=== PATIENT | female | born 1980 | race Caucasian/White ===

== ENCOUNTER 2017-06-05 17:21 | Emergency (ER) | payer MEDICAID ==
[~2017-06-05] VITALS: Ht 165.1 cm; Wt 85.3 kg
--- NOTE | 2017-06-05 17:30 | NUR ---
34 WEEKS : STATES "I HAVE NOT FELT MY BABY MOVE IN 1 WHOLE DAY"
--- NOTE | 2017-06-05 17:40 | NUR ---
DR HUFFMAN AT BEDSIDE FOR EVAL
--- NOTE | 2017-06-05 18:40 | NUR ---
STITCH BONDING MACHINE TENDER AT BEDSIDE
--- NOTE | 2017-06-05 18:45 | NUR ---
WAITING FOR ULTRASOUND
--- NOTE | 2017-06-05 19:06 | NUR ---
CALLED DR REBOLLAR'S OFFICE SPOKE WITH VELMA, DR REBOLLAR WAS PAGED.
--- NOTE | 2017-06-05 19:22 | NUR ---
CALLED DR REBOLLAR'S OFFICE SPOKE WITH VELMA, DR REBOLLAR WAS REPAGED.
--- NOTE | 2017-06-05 19:23 | NUR ---
GAVE REPORT TO JHONATAN FOR CATHLEEN
--- NOTE | 2017-06-05 19:32 | NUR ---
AWITING FOR BED
--- NOTE | 2017-06-05 19:44 | NUR ---
CALLED DR REBOLLAR'S OFFICE SPOKE WITH VELMA, DR REBOLLAR WAS REPAGED.
--- NOTE | 2017-06-05 19:57 | NUR ---
CALLED [facility], I SPOKE WITH COLETTE VARELA AND NOTIFIED HER DR ROGERS REQUESTS FOR PATIENT TO BE TRANSFERRED TO [facility]. SHE STATES PATIENT IS TO GO STRAIGHT TO L&D.
--- NOTE | 2017-06-05 20:00 | NUR ---
CALLED [facility] FOR TRANSPORTATION GOING TO [facility]D, ETA 90 MIN
[2017-06-05 20:53] VITALS: BP 130/90
--- NOTE | 2017-06-05 20:54 | NUR ---
PATIENT TRANSPORTED TO [facility] FOR HIGHER LEVEL OF CARE. PATIENT'S VSS
== END 2017-06-05 20:57 | disposition home or self-care (01) ==
LOC: ER 17:25
DX: O36.4XX0 Maternal care for intrauterine death, not applicable or unspecified (principal); Z3A.35 35 weeks gestation of pregnancy
CPT/HCPCS: 76805-TC; A4606; Z7610

== ENCOUNTER 2017-12-17 15:20 | Emergency (ER) | payer OTHER ==
[~2017-12-17] VITALS: Ht 165.1 cm; Wt 83.9 kg
[2017-12-17 15:20] VITALS: BP 155/82
[2017-12-17 16:35] LABS: BASOPHILS % (AUTO) 0.6 % (0.0-2.0); EOSINOPHILS % (AUTO) 0.7 % (0.0-6.0); HEMATOCRIT 37 % (33-45); HEMOGLOBIN 12.6 g/dL (11.5-14.8); LYMPHOCYTES % (AUTO) 24.3 % (20.0-44.0); MEAN CORPUSCULAR HGB CONC 34 g/dl (31.0-36.0); MEAN CORPUSCULAR VOLUME 86 fL (82-100); MONOCYTES # (AUTO) 0.6 /CMM (0.1-1.30); MONOCYTES % (AUTO) 6.9 % (2.0-12.0); NEUTROPHILS # (AUTO) 5.7 /CMM (1.8-8.9); NEUTROPHILS % (AUTO) 67.5 % (43.0-81.0); PLATELET COUNT (AUTO) 266 /CMM (150-450); RDW COEFFICIENT OF VARIATION 12.5 (11.5-15.0); RED BLOOD CELL COUNT(AUTO) 4.34 MIL/uL (4.0-5.2); WHITE BLOOD COUNT (AUTO) 8.4 K/uL (4.3-11.0)
[2017-12-17 16:48] LABS: CALCIUM, SERUM 8.9 mg/dL (8.5-10.1); CREATININE 0.7 mg/dL (0.6-1.3)
[2017-12-17 16:51] LABS: ALBUMIN 3.8 g/dL (3.4-5.0); BILIRUBIN,TOTAL 0.2 mg/dL (0.2-1.0); TOTAL PROTEIN, SERUM 7.8 g/dL (6.4-8.2)
[2017-12-17 17:01] LABS: THYROID STIMULATING HORMONE 0.054 uIU/mL (0.358-3.74)
== END 2017-12-17 17:56 | disposition home or self-care (01) ==
LOC: ER 15:21
DX: E05.90 Thyrotoxicosis, unspecified without thyrotoxic crisis or storm (principal)
CPT/HCPCS: 36415; 76536-TC; 80053-TC; 84443-TC; 85025-TC; A4606; Z7610

== ENCOUNTER 2019-03-15 14:43 | Emergency (ER) | payer MEDICAID, OTHER ==
[~2019-03-15] VITALS: Ht 165.1 cm; Wt 84.4 kg
--- NOTE | 2019-03-15 15:10 | NUR ---
L SIDED /CHEST/UPPER BACK PAIN, PRESSURE LIKE X 2 DAYS. ALSO C/O SOB. PT AAOX4, VSS. DENIES DIZZINESS, N/V, ARM/JAW PAIN AT THIS TIME. PLACED ON CONTACT AGENT, MAURILIO MAY AT FOR EVAL. WILL CONT TO MONITOR.
[2019-03-15] MEDS ORDERED: ASPIRIN 81 MG TAB.CHEW PO ONE (15:30)
[2019-03-15] MEDS ORDERED: ASPIRIN 81 MG TAB.CHEW ONE (15:36)
[2019-03-15 15:41] LABS: BASOPHILS # (AUTO) 0.1 /CMM (0.0-0.2); BASOPHILS % (AUTO) 0.9 % (0.0-2.0); EOSINOPHILS % (AUTO) 1.5 % (0.0-6.0); HEMATOCRIT 35 % (33-45); HEMOGLOBIN 11.5 g/dL (11.5-14.8); LYMPHOCYTES # (AUTO) 1.8 /CMM (0.8-4.8); LYMPHOCYTES % (AUTO) 21.5 % (20.0-44.0); MEAN CORPUSCULAR HGB CONC 33 g/dl (31.0-36.0); MEAN CORPUSCULAR VOLUME 87 fL (82-100); MONOCYTES # (AUTO) 0.5 /CMM (0.1-1.30); NEUTROPHILS # (AUTO) 5.7 /CMM (1.8-8.9); NEUTROPHILS % (AUTO) 70.1 % (43.0-81.0); PLATELET COUNT (AUTO) 251 /CMM (150-450); RED BLOOD CELL COUNT(AUTO) 3.98 MIL/uL (4.0-5.2); WHITE BLOOD COUNT (AUTO) 8.2 K/uL (4.3-11.0)
[2019-03-15 15:48] LABS: CALCIUM, SERUM 8.6 mg/dL (8.5-10.1); CARBON DIOXIDE 29 mmol/L (21-32); CHLORIDE 103 mmol/L (98-107); CREATININE 0.8 mg/dL (0.6-1.3); GLUCOSE 96 mg/dL (74-106); POTASSIUM 3.9 mmol/L (3.5-5.1); SODIUM SERUM 141 mmol/L (136-145); UREA NITROGEN, BLOOD 11 mg/dL (7-18)
--- NOTE | 2019-03-15 15:49 | NUR ---
MEDICATED ORDERED PER PA'S ORDER, PT YUE WELL.
[2019-03-15] MEDS ORDERED: IOHEXOL-300 100 ML VIAL IV ONE (15:58)
[2019-03-15 15:59] LABS: ALANINE AMINOTRANSFERASE 51 U/L (12-78); ALBUMIN 2.9 g/dL (3.4-5.0); ALKALINE PHOSPHATASE 102 U/L (46-116); ASPARTATE AMINOTRANSFERASE 36 U/L (15-37); BILIRUBIN,TOTAL 0.2 mg/dL (0.2-1.0)
[2019-03-15] MEDS ORDERED: IV NS 0.9% 1,000 ML BAG IV ONE (16:00)
--- NOTE | 2019-03-15 18:00 | NUR ---
Patient discharged to home in stable condition. Written and verbal after care instructions given. Patient verbalizes understanding of instruction. IV removed. Catheter intact and site benign. Pressure and 4x4 applied to site. No bleeding noted.
[2019-03-15 18:02] VITALS: BP 118/80
== END 2019-03-15 18:03 | disposition home or self-care (01) ==
LOC: ER 14:50
DX: R07.89 Other chest pain (principal); R59.1 Generalized enlarged lymph nodes; R94.6 Abnormal results of thyroid function studies; Z85.850 Personal history of malignant neoplasm of thyroid; Z98.890 Other specified postprocedural states
CPT/HCPCS: 36415; 71045; 71275; 80048; 80076; 84443; 84484; 85025; 93005 ×2; 99284; J7030; Q9967

== ENCOUNTER 2019-03-27 20:09 | Emergency (ER) | payer MEDICAID ==
[~2019-03-27] VITALS: Ht 165.1 cm; Wt 82.6 kg
[2019-03-27 21:27] VITALS: BP 158/99
== END 2019-03-27 22:34 | disposition home or self-care (01) ==
LOC: ER 20:11
DX: M26.602 Left temporomandibular joint disorder, unspecified (principal); Z85.850 Personal history of malignant neoplasm of thyroid; Z90.89 Acquired absence of other organs; Z98.890 Other specified postprocedural states

== ENCOUNTER 2020-05-20 15:35 | Inpatient (IN) | payer MEDICAID ==
[~2020-05-20] VITALS: Ht 165.1 cm; Wt 82.6 kg
--- NOTE | 2020-05-20 15:54 | NUR ---
CAME IN FOR FEVER, BILAT HAND SPASMS THAT STARTED EARLY TODAY. +COVID 19, TO ER BED 6, IN ISOLATION, PATIENT WITH MASK. HOOKED TO BP CUFF AND POX, CHANGED TO HOSP GOWN, WARM BLANKET PROVIDED, PATIENT AAO x 4, BREATHING EVEN AND UNLABORED. AWAITING MD SMITH.
--- NOTE | 2020-05-20 16:17 | NUR ---
FAMILY SCOTT LEFT # [phone]
--- NOTE | 2020-05-20 16:40 | NUR ---
DR TAFOYA AT BEDSIDE FOR EVAL.
--- NOTE | 2020-05-20 16:41 | NUR ---
DR TAFOYA AT BEDSIDE
--- NOTE | 2020-05-20 16:55 | NUR ---
IV LINE STARTED BLOOD DRAWN AND SENT TO LAB.
[2020-05-20] MEDS ORDERED: IV NS 0.9% 1,000 ML IV ONE (17:00)
[2020-05-20] MEDS ORDERED: ACETAMINOPHEN 325 MG TABLET PO ONE (17:00)
[2020-05-20] MEDS ORDERED: IV NS 0.9% 1,000 ML BAG IV ONE (17:00)
[2020-05-20] MEDS ORDERED: ACETAMINOPHEN 325 MG TABLET ONE (17:02)
[2020-05-20 17:07] LABS: BASOPHILS % (AUTO) 0.5 % (0.0-2.0); EOSINOPHILS % (AUTO) 0.1 % (0.0-6.0); HEMATOCRIT 35 % (33-45); HEMOGLOBIN 11.5 g/dL (11.5-14.8); LYMPHOCYTES # (AUTO) 0.8 /CMM (0.8-4.8); LYMPHOCYTES % (AUTO) 19.8 % (20.0-44.0); MEAN CORPUSCULAR HGB CONC 33 g/dl (31.0-36.0); MEAN CORPUSCULAR VOLUME 84 fL (82-100); MONOCYTES # (AUTO) 0.3 /CMM (0.1-1.30); MONOCYTES % (AUTO) 7.8 % (2.0-12.0); NEUTROPHILS # (AUTO) 2.7 /CMM (1.8-8.9); NEUTROPHILS % (AUTO) 71.8 % (43.0-81.0); PLATELET COUNT (AUTO) 150 /CMM (150-450); RED BLOOD CELL COUNT(AUTO) 4.12 MIL/uL (4.0-5.2); WHITE BLOOD COUNT (AUTO) 3.8 K/uL (4.3-11.0)
[2020-05-20 17:13] LABS: CALCIUM, SERUM 6.9 mg/dL (8.5-10.1); CREATININE 0.7 mg/dL (0.6-1.3); POTASSIUM 3.1 mmol/L (3.5-5.1)
[2020-05-20] MEDS ORDERED: CODEINE/PROMETHAZINE HCL 5 ML UDC ONE (17:17)
[2020-05-20] MEDS: CODEINE/PROMETHAZINE HCL 5 ML UDC PO PRN (17:22)
[2020-05-20] MEDS ORDERED: LEVO175T2 PO (18:13)
[2020-05-20] MEDS ORDERED: CALC0.258 PO (18:13)
[2020-05-20] MEDS ORDERED: POTASSIUM CHLORIDE 20 MEQ TAB.PRT.SR PO ONE (18:30)
[2020-05-20] MEDS ORDERED: Calcium Gluconate 1GM/10ML 9.3 MEQ in IV D5W 250 ML IV ONE (18:30)
--- NOTE | 2020-05-20 19:08 | NUR ---
REPORT GIVEN TO SUNSHINE VARELA FOR CATHLEEN.
--- NOTE | 2020-05-20 19:20 | NUR ---
DR TAFOYA AT BEDSIDE
--- NOTE | 2020-05-20 19:20 | NUR ---
PT AAOX4, VSS, RESPIRATIONS EVEN AND UNLABORED ON RA W/ NAD NOTED. PT CONNECTED TO THE CARDAIC MONITOR AND POX.
[2020-05-20] MEDS ORDERED: MAG HYDROX/AL HYDROX/SIMETH 30 ML UDC PO PRN (20:00)
[2020-05-20] MEDS ORDERED: MAGNESIUM HYDROXIDE 30 ML UDC PO PRN (20:00)
[2020-05-20] MEDS ORDERED: Z GUARD REMEDY 2 OZ OINT TP PRN (20:00)
[2020-05-20] MEDS ORDERED: ZOLPIDEM TARTRATE 5 MG TABLET PO PRN (20:00)
[2020-05-20] MEDS ORDERED: HYDROCODONE/APAP 5/325MG TABLET PO PRN (20:00)
[2020-05-20] MEDS ORDERED: ONDANSETRON HCL/PF 4 MG/2 ML VIAL IVP PRN (20:00)
[2020-05-20] MEDS ORDERED: ACETAMINOPHEN 325 MG TABLET PO PRN (20:00)
--- NOTE | 2020-05-20 20:28 | NUR ---
Rec'd report from NICHOLE Erickson for CATHLEEN.
--- NOTE | 2020-05-20 20:41 | NUR ---
REPORT GIVEN TOP NICHOLE JANG FOR CATHLEEN
[2020-05-20 22:00] VITALS: BP 146/75
--- NOTE | 2020-05-20 22:13 | NUR ---
PT TRANSFERRED TO ROOM IN STABLE CONDITION
--- NOTE | 2020-05-20 23:15 | NUR ---
RN OPENING NOTE RECIEVED PT IN BED VIA GURNEY FROM THE ED. ISOLATION PRECAUTIONS IMPLEMENTED POSITIVE COVID RESULT. PT AMBULATED TO BED WITH STEADY GAIT. A/O X4. SR ON TELE MONITOR. REFUSED BED BATH. SKIN CHECK DONE. ON ROOM AIR, O2 WNL, NO SOB OR RESPIRATORY DISTRESS NOTED. LAC #20 PATENT AND FLUSHED. DRESSING C/D/I. BED SIDE COMMODE GIVEN. PER PT ONLY TO GIVE UPDATES TO AND DAUGHTER. WISHES NOTED. DR ELLIOTT AWARE OF PT IN UNIT. SAFETY MEASURES IN PLACE. WILL CONTINUE TO MONITOR.
[2020-05-21] VITALS (7 sets, daily range): BP systolic 104–150; BP diastolic 54–87
[2020-05-21 04:24] LABS: BASOPHILS % (AUTO) 0.3 % (0.0-2.0); EOSINOPHILS % (AUTO) 0.1 % (0.0-6.0); HEMATOCRIT 33 % (33-45); HEMOGLOBIN 11.1 g/dL (11.5-14.8); LYMPHOCYTES # (AUTO) 1.1 /CMM (0.8-4.8); LYMPHOCYTES % (AUTO) 30.9 % (20.0-44.0); MEAN CORPUSCULAR HGB CONC 34 g/dl (31.0-36.0); MEAN CORPUSCULAR VOLUME 82 fL (82-100); MONOCYTES # (AUTO) 0.3 /CMM (0.1-1.30); NEUTROPHILS # (AUTO) 2.2 /CMM (1.8-8.9); NEUTROPHILS % (AUTO) 59.7 % (43.0-81.0); PLATELET COUNT (AUTO) 139 /CMM (150-450); WHITE BLOOD COUNT (AUTO) 3.6 K/uL (4.3-11.0)
[2020-05-21 04:37] LABS: CALCIUM, SERUM 6.5 mg/dL (8.5-10.1); CREATININE 0.8 mg/dL (0.6-1.3); MAGNESIUM 1.6 mg/dL (1.8-2.4); PHOSPHORUS 3.2 mg/dL (2.5-4.9)
[2020-05-21 04:45] LABS: THYROID STIMULATING HORMONE 0.319 uIU/mL (0.358-3.74)
--- NOTE | 2020-05-21 06:30 | NUR ---
RN CLOSING NOTE PT IS CURRENTLY RESTING IN BED. FULL CODE STATUS. ISOLATION PRECAUTIONS REMAINED IN PLACE PENDING COVID RESULT. NO SIGNS OF RESPIRATORY DISTRESS OR SOB NOTED AT THIS TIME. TELE MONITOR SHOWS SR. VSS. BED LOCKED IN LOWEST POSITION, CALL LIGHT WITHIN REACH. NEEDS ATTENDED. WILL ENDORSE TO ONCOMING NURSE FOR CONTINUATION OF CARE.
--- NOTE | 2020-05-21 08:00 | NUR ---
PROCESS PUMPER NOTE PATIENT IN BED ALERT ,ORIENTEDX3 ON TELE MONITOR ,SR , NO SOB NOTED,ON RA ABLE TO EAT BREAKFAST SELF, LT AC HL INTACT AND FLUSHED WELL , BED IN LOWEST AND LOCKED POSITION , PLAN OF CARE DISCUSSED WITH PATIENT, WILL MONITOR
[2020-05-21] MEDS: CALCIUM CARBONATE (1250) 500 MG TABLET PO SCH ×3 (08:37→17:00)
[2020-05-21] MEDS: CALCITRIOL 0.25 MCG CAPSULE PO SCH (08:39)
[2020-05-21 08:58] LABS: ALBUMIN 3.1 g/dL (3.4-5.0); BILIRUBIN,DIRECT 0.1 mg/dL (0.0-0.2); BILIRUBIN,TOTAL 0.3 mg/dL (0.2-1.0); TOTAL PROTEIN, SERUM 6.7 g/dL (6.4-8.2)
--- NOTE | 2020-05-21 09:00 | NUR ---
TIMBER TREATMENT PLANT OPERATOR NOTE REPORT GIVEN TO ROBIN VARELA
--- NOTE | 2020-05-21 09:05 | NUR ---
RN NOTE REPORT GIVEN TO ME BY BARBARA. PATIENT IN BED ALERT ,ORIENTEDX4. SPEAKS MARTINIQUAIS AND MACEDONIAN. PATIENT ON TELE MONITOR READING SR , NO SOB NOTED,ON RA SAT 98%. NOTED IV ACCESS ON L AC HL INTACT AND FLUSHED WELL. SAFETY MEASURES IN PLACE, BED IS LOCKED AND IN LOWEST POSITION . HEAD OF BED IS ELEVATED. CALL LIGHT IS WITHIN EASY REACH. WILL CONTINUE TO MONITOR.
[2020-05-21] MEDS: Magnesium 1GM/D5W 100ML PREMIX 100 ML IV SCH ×2 (09:45→10:48)
[2020-05-21] MEDS: POTASSIUM CHLORIDE 10 MEQ TABLET.SA PO SCH ×2 (09:46→12:51)
--- NOTE | 2020-05-21 12:46 | NUR ---
RN NOTE LAB CALLED, PCR COVID IS POSITIVE, CHARGE NURSE MADE AWARE.
--- NOTE | 2020-05-21 18:51 | NUR ---
RN CLOSING NOTE WILL ENDORSE TO PM NURSE FOR CATHLEEN. PT IS CURRENTLY RESTING IN BED. A/O X 4, HEBREW/SLOVAK SPEAKER. PATIENT ON ROOM AIR SAT 98%. ISOLATION PRECAUTIONS REMAINED IN PLACE PENDING COVID RESULT. NO SIGNS OF RESPIRATORY DISTRESS OR SOB NOTED AT THIS TIME. TELE MONITOR SHOWS SR. @ 60'S. IV ACCESS LAC # 20. SAFETY MEASURES IN PLACE, BED IS LOCKED AND IN LOWEST POSITION, CALL LIGHT WITHIN REACH. NEEDS ATTENDED.
--- NOTE | 2020-05-21 19:20 | NUR ---
RN OPENING NOTES RECEIVED PT RESTING IN BED. FULL CODE. ISOLATION FOR POSITIVE COVID IN PLACE. A/O X4. ON RA O2 SAT WNL. NO SOB OR RESPIRATORY DISTRESS NOTED. SR ON TELE MONITOR. LAC #20G PATENT AND FLUSHED. DRESSING C/D/I. TKO INFUSING. AMBULATORY TO BED SIDE COMMODE. SAFETY MEASURES IN PLACE WILL CONTINUE TO MONITOR.
[2020-05-22] VITALS (7 sets, daily range): BP systolic 102–141; BP diastolic 63–95
--- NOTE | 2020-05-22 04:00 | NUR ---
RN NOTE: Pt refused bed bath and linen change. Wishes noted.
--- NOTE | 2020-05-22 04:49 | NUR ---
RN NOTE: Transferred pt via ACLS protocol to room 104. Pt in stable condition, hooked up to tele monitor and oriented to room.
[2020-05-22 05:00] LABS: CALCIUM, SERUM 6.9 mg/dL (8.5-10.1); CREATININE 0.8 mg/dL (0.6-1.3); POTASSIUM 3.5 mmol/L (3.5-5.1)
--- NOTE | 2020-05-22 06:50 | NUR ---
RN CLOSING NOTE PT IS CURRENTLY RESTING IN BED. ISOLATION PRECAUTIONS IN PLACE FOR POSITIVE COVID RESULT. VSS. NO RESPIRATORY DISTRESS OR SOB NOTED. IV SITES KEPT CLEAN AND DRY, FLUSHING WELL. NEEDS ATTENDED. WILL ENDORSE ONCOMING NURSE FOR CONTINUATION OF CARE.
--- NOTE | 2020-05-22 07:30 | NUR ---
RN OPENING NOTES RECEIVED PT RESTING IN BED. A/O X4. ON RA O2 SAT 97%. NO SOB OR RESPIRATORY DISTRESS NOTED. TELE MONITOR SHOWING SR. LAC #20G PATENT AND FLUSHING WELL. AMBULATORY TO BED SIDE COMMODE. SAFETY MEASURES OBSERVED. CALL LIGHT WITHIN REACH, BED LOCKED AND AT LOWEST POSITION. WILL CONTINUE TO MONITOR.
[2020-05-22] MEDS: CALCIUM CARBONATE (1250) 500 MG TABLET PO SCH ×3 (08:51→18:12)
[2020-05-22] MEDS: CALCITRIOL 0.25 MCG CAPSULE PO SCH (08:52)
--- NOTE | 2020-05-22 11:15 | NUR ---
RN NOTES SEEN BY DR. SHELTON, NO NEW ORDERS AT THIS TIME
--- NOTE | 2020-05-22 16:40 | NUR ---
FF UP PTH STILL PENDING.
--- NOTE | 2020-05-22 18:47 | NUR ---
RN CLOSING NOTE PT IS CURRENTLY RESTING IN BED. ISOLATION PRECAUTIONS REMAINED IN PLACE. NO SIGNS OF RESPIRATORY DISTRESS OR SOB NOTED AT THIS TIME. TELE MONITOR SHOWS SR. SAFETY MEASURES OBSERVED. CALL LIGHT WITHIN REACH, BED LOCKED AND AT LOWEST POSITION. WILL ENDORSE TO ONCOMING NURSE FOR CATHLEEN.
--- NOTE | 2020-05-22 19:29 | NUR ---
TELE/RN OPENING NOTES RECEIVED PATIENT IN BED, AWAKE, ALERT X4, ABLE TO VERBALIZE NEEDS, REPORTED WANTS TO GO HOME BUT WAS INFORMED AND WERE MADE AWARE THAT SOME BLOOD TEST PTH IS STILL PENDING, AGREED WITH PLAN OF CARE. ON ROOM AIR, ABLE TO USE CALL LIGHTS AND BELONGINGS WITHIN REACH, WOULD LIKE TO GET SOME REST, INFECTION CONTROL PRECAUTIONS FOLLOWED, ON CONTACT DROPLET ISOLATION, TO MONITOR. IV SITE ON LEFT AC. OBSERVE COUGH OCCASIONALLY. TO MONITOR. RECEIVED ENDORESMENMT FROM AM RN FOR CATHLEEN.
--- NOTE | 2020-05-22 20:05 | NUR ---
TELE/RN NOTES PATIENT ON TELE MONITOR AT SR,RESPIRATIONS EVEN AND UNLABORED, SKIN WARM TO TOUCH, ALERT, ORIENTED X3, SKIN INTACT, IV HEPLOCK WITH LEFT AC GAUGE 20 PATENT, CALL LIGHTS WITHIN REACH, BELONGINGS WITHIN REACH, BED LOCKED, ISOLATION DROPLET PRECAUTION FOLLOWED.
--- NOTE | 2020-05-22 23:32 | NUR ---
TELE/RN NOTES PATIENT REPORTED HAVING HEADACHE, TYLENOL 650 MG PO GIVEN TO MONITOR.
[2020-05-23] VITALS: BP 122/73
[2020-05-23 04:00] VITALS: BP 104/62
--- NOTE | 2020-05-23 06:51 | NUR ---
PATIENT ALERT, ORIENTED, ABLE TO TOLERATE FOOD AND FLUIDS WITH NO NAUSEA AND VOMITING, ASSES FOR ANY CHANGES, OCCASIONAL COUGH, NO FEVER, INDEPENDENT WITH SELF CARE, VERBALIZE UNDERSTANDING AND ABLE TO COMPLY WITH TREATMENT, CONTACT ISOLATION IN PLACE, AWAITING FOR TEST RESULT PTH AND PATIENT CAREPLAN REVIEWED WITH OTHER HEALTHCARE TEAM,TO MONITOR AND FOLLOW UP IN AM.
[2020-05-23 08:00] VITALS: BP 114/68
--- NOTE | 2020-05-23 08:00 | NUR ---
BOOSTER STATION OPERATOR NOTE PT IN BED A&O X4 NO SOB NOTED ON RA SAT=98% PT ON TELE MONITOR SR 60 LEFT AC HEP LOCK #20 FLUSH WELL NO C/O OF PAIN, ONLY DRY COUGH, WILL NOTIFY MD BED AT LOWEST AND LOCK POSITION SAFETY MEASURES ABSORBED WILL CONT TO MONITOR ABLE TO EAT BREAKFAST ATE 50% ,WILL CONT TO MONITOR
[2020-05-23] MEDS: CALCIUM CARBONATE (1250) 500 MG TABLET PO SCH ×2 (08:09→12:34)
[2020-05-23] MEDS: CALCITRIOL 0.25 MCG CAPSULE PO SCH (08:24)
[2020-05-23] MEDS ORDERED: CALC500T52 PO (11:00)
[2020-05-23 12:00] VITALS: BP 101/68
--- NOTE | 2020-05-23 12:00 | NUR ---
teleprinter note per dr bonnie vincent to discharge home ,per patient she has separate room for quarantine for 14 days , discharge px explained how to take , that called pharmacy,it will be ready soon to parts picker
--- NOTE | 2020-05-23 13:44 | NUR ---
OCTAVE BOARD ASSEMBLER NOTES D/C INSTRUCTIONS GIVEN TO PT , UNDERSTOOD, TELEMETRY REMOVED AND HEPLOCK LAC REMOVED NO BLEEDING PRESSURE DRESSING APPLIED, INSTRUCTED PT ABOUT HOME MEDICATIONS AND NEW PRESCRIPTIONS, AND POSSIBLE SIDE EFFECTS, PT STATED SHE REC'D TEXT FROM PHARMACY REGARDING MEDICATION AVAILABLE FOR BELT AND LINK SHOP SUPERVISOR. INSTRUCTED PT TO F/U W/PRIMARY DOCTOR AND TO RETURN IF WORSENING SYMPTOMS, NOTIFIED TO BELT AND LINK SHOP SUPERVISOR PT. EXPLAINED TO PT SHE MUST QUARANTINE FOR 14 DAYS, PER PT SHE HAS SEPARATE ROOM IN HOUSE TO QUARANTINE, PT VERBALIZE UNDERSTANDING.
--- NOTE | 2020-05-23 14:04 | NUR ---
supervisor telephone answering service note taken on \ for discharge ,patient went home with stable condition
== END 2020-05-23 15:30 | disposition home or self-care (01) | DRG 424 ==
LOC: ER 15:38 → ICU 20:01 → TELE1 05-22 04:03
PROVIDERS: ADMIT Student in an Organized Health Care Education/Training Program
DX: E20.8 Other hypoparathyroidism (principal); E87.6 Hypokalemia; U07.1 COVID-19; Z85.850 Personal history of malignant neoplasm of thyroid; Z79.890 Hormone replacement therapy
CPT/HCPCS: 36415; 71045-TC; 80048-TC; 80061-TC; 80076-TC; 82040-TC; 83735-TC; 83970; 84100-TC; 84443-TC; 84702-TC; 85025-TC; 87081-TC; A6253; G0378; J0610; J3475; J7030; J7050; J7060; U0003-CS

== ENCOUNTER 2024-05-26 20:06 | Emergency (ER) | payer MEDICAID, OTHER ==
[~2024-05-26] VITALS: Ht 160 cm; Wt 83.9 kg
[~2024-05-26 20:06] MED LIST: CALC0.258 PO; CALC500T52 PO; LEVO175T2 PO
[2024-05-26] MEDS: IV NS 0.9% 1,000 ML BAG IV ONE (21:30)
[2024-05-26 21:48] LABS: BASOPHILS % (AUTO) 0.5 % (0.0-2.0); EOSINOPHILS # (AUTO) 0.1 K/uL (0.0-0.7); HEMATOCRIT 38 % (33-45); HEMOGLOBIN 12.8 g/dL (11.5-14.8); LYMPHOCYTES # (AUTO) 2.5 K/uL (0.8-4.8); LYMPHOCYTES % (AUTO) 30.2 % (20.0-44.0); MEAN CORPUSCULAR HEMOGLOBIN 29 PG (26.0-33.0); MEAN CORPUSCULAR HGB CONC 34 g/dl (31.0-36.0); MEAN CORPUSCULAR VOLUME 86 fL (82-100); MONOCYTES # (AUTO) 0.5 K/uL (0.1-1.30); MONOCYTES % (AUTO) 6.5 % (2.0-12.0); NEUTROPHILS % (AUTO) 61.8 % (43.0-81.0); PLATELET COUNT (AUTO) 254 K/uL (150-450); RED BLOOD CELL COUNT(AUTO) 4.44 MIL/uL (4.0-5.2); RED CELL DISTRIBUTION WIDTH 13.1 % (11.5-15.0); WHITE BLOOD COUNT (AUTO) 8.1 K/uL (4.3-11.0)
[2024-05-26 22:03] LABS: CALCIUM, SERUM 8.5 mg/dL (8.5-10.1); CREATININE 0.6 mg/dL (0.6-1.3); POTASSIUM 3.6 mmol/L (3.5-5.1)
[2024-05-26 22:08] LABS: ALBUMIN 4.1 g/dL (3.4-5.0); BILIRUBIN,DIRECT 0.1 mg/dL (0.0-0.2); BILIRUBIN,TOTAL 0.4 mg/dL (0.2-1.0); TOTAL PROTEIN, SERUM 7.8 g/dL (6.4-8.2)
[2024-05-27 01:50] VITALS: BP 142/89; TEMP 98.2; O2SAT 99
== END 2024-05-27 01:50 | disposition home or self-care (01) ==
LOC: ER 20:23
DX: M79.642 Pain in left hand (principal); M79.641 Pain in right hand; R42 Dizziness and giddiness; Z98.890 Other specified postprocedural states; Z79.899 Other long term (current) drug therapy
CPT/HCPCS: 99285; 96360; 70450; 71045; 93005; 85025; 80048; 80076; 36415; 82310; J7030